=== PATIENT | male | born 1970 | race Caucasian/White ===

== ENCOUNTER → 2016-11-23 | Outpatient (CLI) | payer MEDICAID ==
[~2016-11-23] MED LIST: ASPIRIN 81MG TA81 MG PO; AUGMENTIN XR 101 TER PO; CIPRO 500MG TA500 MG PO; CLINDAMYCIN HC300 MG PO; COREG25 MG PO; CYMBALTA30 MG PO; FLEXERIL10 MG PO; FLEXERIL5 MG PO; FLOMAX0.4 MG PO; GABAPENTIN 600600 MG PO; HYDROCODONE1 TABLET PO; IBU-8800 MG PO; LASIX 40MG. TAB40 MG PO; LEVOTHYROXIN0.075 M1 PO; LIPITOR20 MG PO; LISINOPRIL 20MG20 MG PO; LORTAB 5/500 501 TAB PO; MOTRIN 400MG.400 MG PO; NITROGLYCERIN0.4 MG SL; PANTOPRAZOLE SO40 MG PO; PERCOCET 10 MG1 EACH PO; PHENERGAN 25MG.25 M1 PO; PLAVIX 75MG TAB75 MG PO; SPIRONOLACTONE25 MG NG
[2016-11-23 16:15] LABS: BUN 23 mg/dL (7-18)
[2016-11-23 16:16] LABS: GFR (ESTIMATED) 65 ML/MIN (>60)
== END ==
LOC: LAB 15:05
PROVIDERS: Physician Assistant
DX: R07.9 Chest pain, unspecified (principal); I25.10 Atherosclerotic heart disease of native coronary artery without angina pectoris; I10 Essential (primary) hypertension; R06.00 Dyspnea, unspecified

== ENCOUNTER → 2017-02-11 | Outpatient (CLI) | payer MEDICAID ==
[2017-02-11 11:26] LABS: BUN 18 mg/dL (7-18)
[2017-02-11 11:28] LABS: GFR (ESTIMATED) 72 ML/MIN (>60)
== END ==
LOC: LAB 09:50
PROVIDERS: Physician Assistant
DX: I25.10 Atherosclerotic heart disease of native coronary artery without angina pectoris (principal); E78.5 Hyperlipidemia, unspecified

== ENCOUNTER → 2017-04-12 | Outpatient (CLI) | payer MEDICAID ==
[~2017-04-12] MED LIST changes: +HYDROCODONE/APA1 TA8 PO
== END ==
LOC: SL 20:10
DX: G47.33 Obstructive sleep apnea (adult) (pediatric) (principal); R06.83 Snoring; G47.10 Hypersomnia, unspecified